=== PATIENT | male | born 1970 ===

== ENCOUNTER 2017-03-22 19:56 | Emergency (ER) | payer OTHER ==
[2017-03-22 20:45] VITALS: BP 146/72; PULSE 68; RESP 18; TEMP 98.1; O2SAT 100
--- NOTE | 2017-03-22 21:43 | ED PDOC ---
HPI: CCC, URI, Sore Throat Time Seen by Provider: 03/22/17 21:21 Chief Complaint (Nursing): ENT Problem Chief Complaint (Provider): Throat pain and swelling History Per: Patient History/Exam Limitations: no limitations Onset/Duration Of Symptoms: Days (x1) Current Symptoms Are (Timing): Still Present Location Of Pain: Throat Additional Complaint(s): 46 year old male presents to the emergency department complaining of throat pain and swelling since this morning. He denies any associated cough, congestion , or fever. Patient has not taken any medications for symptom relief today. Patient is tolerating liquids and solids but has pain when swallowing. PMD: None Past Medical History Reviewed: Historical Data, Nursing Documentation, Vital Signs Vital Signs: Last Vital Signs Temp 98.1 F 03/22/17 20:39 Pulse 68 03/22/17 20:39 Resp 18 03/22/17 20:39 BP 146/72 03/22/17 20:39 Pulse Ox 100 03/22/17 21:44 - Medical History PMH: No Chronic Diseases - Surgical History Surgical History: Hernia Repair - Family History Family History: States: No Known Family Hx - Social History Current smoker - smoking cessation education provided: No Alcohol: None Drugs: Denies - Home Medications Home Medications: Ambulatory Orders Medication Instructions Recorded Amoxicillin/Clavulanate [Augmentin 1 tab PO BID #14 tab 03/22/17 875 MG-125 MG] - Allergies Allergies/Adverse Reactions: Allergies Allergy/AdvReac Type Severity Reaction Status Date / Time No Known Allergies Allergy Verified 03/22/17 20:39 Review of Systems ROS Statement: Except As Marked, All Systems Reviewed And Found Negative Constitutional: Negative for: Fever, Chills ENT: Positive for: Throat Pain, Throat Swelling. Negative for: Nose Congestion Cardiovascular: Negative for: Chest Pain Respiratory: Negative for: Cough, Shortness of Breath Gastrointestinal: Negative for: Nausea, Vomiting Neurological: Negative for: Headache, Dizziness Physical Exam - Reviewed Nursing Documentation Reviewed: Yes Vital Signs Reviewed: Yes - Physical Exam Appears: Positive for: Well, Non-toxic, No Acute Distress Head Exam: Positive for: ATRAUMATIC, NORMAL INSPECTION, NORMOCEPHALIC Skin: Positive for: Normal Color Eye Exam: Positive for: Normal appearance ENT: Positive for: TM Is/Are (normal), Tonsillar Swelling (Bilaterally with midline uvula, no exudate noted, airway patent). Negative for: Pharyngeal Erythema, Tonsillar Exudate Cardiovascular/Chest: Positive for: Regular Rate, Rhythm Respiratory: Positive for: Normal Breath Sounds. Negative for: Respiratory Distress Lymphatic: Positive for: Adenopathy (bilateral anterior cervical lymphadenopathy , and submental lymphadenopathy) Neurologic/Psych: Positive for: Alert, Oriented - ECG O2 Sat by Pulse Oximetry: 100 (RA) Pulse Ox Interpretation: Normal Medical Decision Making Medical Decision Making: Initial Impression: 46 year old male with tonsillitis Time: 21:38 Initial Plan: --Initial dose Augmentin --Decadron IM --Throat culture Upon provider evaluation patient is medically stable, and requires no further treatment in the ED at this time. Patient will be discharged home with Rx for Augmentin. Counseling was provided and all questions were answered regarding diagnosis and need for follow up with PMD. There is agreement to discharge plan. Return if symptoms persist or worsen. Scribe Attestation: Documented by Camille Gregory, acting as a scribe for Zaynab Christiansen PA-C Provider Scribe Attestation: All medical record entries made by the Scribe were at my direction and personally dictated by me. I have reviewed the chart and agree that the record accurately reflects my personal performance of the history, physical exam, medical decision making, and the department course for this patient. I have also personally directed, reviewed, and agree with the discharge instructions and disposition. Disposition - Clinical Impression Clinical Impression: Tonsillitis - Patient ED Disposition Is Patient to be Admitted: No Counseled Patient/Family Regarding: Studies Performed, Diagnosis, Need For Followup, Rx Given - Disposition Referrals: Rigo Shaffer MD [Staff Provider] - Disposition: Routine/Home Disposition Time: 22:26 Condition: STABLE Additional Instructions: Take prescription meds as directed. Take [id number] Tylenol or Advil for pain as needed. Drink plenty of fluids. Follow-up with primary doctor or ear, nose and throat specialist for any persistent symptoms. Prescriptions: Amoxicillin/Clavulanate [Augmentin 875 MG-125 MG] 1 tab PO BID #14 tab Instructions: Tonsillitis (ED) Forms: [facility] (Chinese)
[2017-03-22] MEDS ORDERED: Amoxicillin-Clav 875-125 mg Tab PO STA (21:46)
== END 2017-03-22 22:43 | disposition home or self-care (01) ==
LOC: H.ER 19:56
DX: J03.90 Acute tonsillitis, unspecified (principal)
CPT/HCPCS: 87070; 96372; 99281; J1100